=== PATIENT | male | born 1940 | race Caucasian/White ===

== ENCOUNTER 2022-02-01 16:32 | Emergency (ER) | payer MEDICARE, OTHER ==
[2022-02-01] MEDS ORDERED: Amoxicillin/Clavulanate K 875-125 MG Tab PO ONE (18:53)
== END 2022-02-01 19:16 | disposition home or self-care (01) ==
LOC: FB.ED 16:32
DX: J01.00 Acute maxillary sinusitis, unspecified (principal); H53.8 Other visual disturbances; Z79.82 Long term (current) use of aspirin; Z79.84 Long term (current) use of oral hypoglycemic drugs; Z79.899 Other long term (current) drug therapy; Z88.2 Allergy status to sulfonamides; Z88.5 Allergy status to narcotic agent; Z88.8 Allergy status to other drugs, medicaments and biological substances
CPT/HCPCS: 36415; 70486; 85651; 99284; A9270

== ENCOUNTER 2022-07-06 07:45 | Inpatient (IN) | payer MEDICARE, OTHER ==
[2022-07-06] MEDS ORDERED: Nitroglycerin 0.4 MG Tab.SL SL PRN (14:18)
[2022-07-06] MEDS ORDERED: Meclizine 25 MG Tab PO PRN (14:18)
[2022-07-06] MEDS ORDERED: Loperamide 2 MG Cap PO PRN (14:18)
[2022-07-06] MEDS ORDERED: Simethicone 80 MG Tab.Chew PO PRN (14:18)
[2022-07-06] MEDS ORDERED: Warfarin Sliding Scale PO SCH (14:45)
[2022-07-06] MEDS: Acetaminophen 500 MG Tab PO SCH ×2 (14:59→20:41)
[2022-07-06] MEDS: Spironolactone 25 MG Tab PO SCH (15:16)
[2022-07-06] MEDS: Bumetanide 1 MG Tab PO SCH (15:16)
[2022-07-06] MEDS: Midodrine 5 MG Tab PO SCH (17:01)
[2022-07-06] MEDS ORDERED: SODIUM CHLORIDE 0.65% NASBOTH PRN (18:15)
[2022-07-06] MEDS: Gabapentin 300 MG Cap PO SCH (20:41)
[2022-07-06] MEDS: atorvaSTATin 40 MG Tab PO SCH (20:41)
[2022-07-06] MEDS: Carboxymethylcellulose Sodium 1% Ophth Gel 15 ML Bottle EYEBOTH SCH (20:42)
[2022-07-07] MEDS: Acetaminophen 500 MG Tab PO SCH ×4 (03:01→20:29)
[2022-07-07] MEDS: Pantoprazole 40 MG Tab.CR PO SCH (05:28)
[2022-07-07] MEDS: Levothyroxine 125 MCG Tab PO SCH (05:28)
[2022-07-07 06:41] LABS: ESTIMATED GFR 35 mL/min (>60)
[2022-07-07] MEDS: Midodrine 5 MG Tab PO SCH ×2 (06:41→17:38)
[2022-07-07] MEDS: Lidocaine 4% 1 each Patch TOP SCH (08:13)
[2022-07-07] MEDS: Spironolactone 25 MG Tab PO SCH ×2 (08:13→13:41)
[2022-07-07] MEDS: Bumetanide 1 MG Tab PO SCH ×2 (08:13→13:41)
[2022-07-07] MEDS: Glimepiride 2 MG Tab PO SCH (08:14)
[2022-07-07] MEDS: Tamsulosin 0.4 MG Cap.ER PO SCH (08:15)
[2022-07-07] MEDS: Empagliflozin 25 MG Tab PO SCH (08:15)
[2022-07-07] MEDS: Aspirin 81 MG Tab.EC PO SCH (08:15)
[2022-07-07] MEDS: Finasteride 5 MG Tab PO SCH (08:15)
[2022-07-07] MEDS: Amiodarone 200 MG Tab PO SCH (08:17)
[2022-07-07] MEDS ORDERED: Warfarin 5 MG Tab PO SCH (16:00)
[2022-07-07] MEDS: Gabapentin 300 MG Cap PO SCH (20:29)
[2022-07-07] MEDS: atorvaSTATin 40 MG Tab PO SCH (20:29)
[2022-07-07] MEDS: Carboxymethylcellulose Sodium 1% Ophth Gel 15 ML Bottle EYEBOTH SCH (20:29)
[2022-07-08] MEDS: Acetaminophen 500 MG Tab PO SCH ×2 (02:02→08:43)
[2022-07-08] MEDS: Pantoprazole 40 MG Tab.CR PO SCH (06:12)
[2022-07-08] MEDS: Levothyroxine 125 MCG Tab PO SCH (06:12)
[2022-07-08] MEDS: Midodrine 5 MG Tab PO SCH ×2 (06:41→17:45)
[2022-07-08] MEDS: Spironolactone 25 MG Tab PO SCH ×2 (08:40→13:40)
[2022-07-08] MEDS: Bumetanide 1 MG Tab PO SCH ×2 (08:40→13:39)
[2022-07-08] MEDS: Glimepiride 2 MG Tab PO SCH (08:40)
[2022-07-08] MEDS: Lidocaine 4% 1 each Patch TOP SCH (08:40)
[2022-07-08] MEDS: Amiodarone 200 MG Tab PO SCH (08:41)
[2022-07-08] MEDS: Empagliflozin 25 MG Tab PO SCH (08:41)
[2022-07-08] MEDS: Tamsulosin 0.4 MG Cap.ER PO SCH (08:41)
[2022-07-08] MEDS: Aspirin 81 MG Tab.EC PO SCH (08:42)
[2022-07-08] MEDS: Finasteride 5 MG Tab PO SCH (08:42)
[2022-07-08] MEDS ORDERED: Acetaminophen 325 MG Tab PO PRN (09:17)
[2022-07-08] MEDS ORDERED: Diclofenac Sodium 1% Gel 100 GM Tube TOP PRN (09:24)
[2022-07-08] MEDS: atorvaSTATin 40 MG Tab PO SCH (21:32)
[2022-07-08] MEDS: Gabapentin 300 MG Cap PO SCH (21:32)
[2022-07-08] MEDS: Carboxymethylcellulose Sodium 1% Ophth Gel 15 ML Bottle EYEBOTH SCH (21:33)
[2022-07-09] MEDS: Levothyroxine 125 MCG Tab PO SCH (06:24)
[2022-07-09] MEDS: Pantoprazole 40 MG Tab.CR PO SCH (06:24)
[2022-07-09] MEDS: Midodrine 5 MG Tab PO SCH ×2 (06:40→17:00)
[2022-07-09] MEDS: Bumetanide 1 MG Tab PO SCH ×2 (07:54→13:24)
[2022-07-09] MEDS: Spironolactone 25 MG Tab PO SCH ×2 (07:55→13:24)
[2022-07-09] MEDS: Empagliflozin 25 MG Tab PO SCH (10:35)
[2022-07-09] MEDS: Amiodarone 200 MG Tab PO SCH (10:35)
[2022-07-09] MEDS: Aspirin 81 MG Tab.EC PO SCH (10:35)
[2022-07-09] MEDS: Finasteride 5 MG Tab PO SCH (10:35)
[2022-07-09] MEDS: Glimepiride 2 MG Tab PO SCH (10:35)
[2022-07-09] MEDS: Tamsulosin 0.4 MG Cap.ER PO SCH (10:35)
[2022-07-09] MEDS: Carboxymethylcellulose Sodium 1% Ophth Gel 15 ML Bottle EYEBOTH SCH (20:32)
[2022-07-09] MEDS: Polyethylene Glycol 3350 Powder 17 GM Packet PO SCH (20:33)
[2022-07-09] MEDS: atorvaSTATin 40 MG Tab PO SCH (20:33)
[2022-07-09] MEDS: Gabapentin 300 MG Cap PO SCH (20:41)
[2022-07-10 06:31] LABS: ESTIMATED GFR 28 mL/min (>60)
[2022-07-10] MEDS: Midodrine 5 MG Tab PO SCH ×3 (06:32→17:31)
[2022-07-10] MEDS: Levothyroxine 125 MCG Tab PO SCH (06:32)
[2022-07-10] MEDS: Pantoprazole 40 MG Tab.CR PO SCH (06:32)
[2022-07-10] MEDS: Glimepiride 2 MG Tab PO SCH (08:18)
[2022-07-10] MEDS: Spironolactone 25 MG Tab PO SCH ×2 (08:18→14:11)
[2022-07-10] MEDS: Aspirin 81 MG Tab.EC PO SCH (08:18)
[2022-07-10] MEDS: Bumetanide 1 MG Tab PO SCH ×2 (08:18→14:11)
[2022-07-10] MEDS: Finasteride 5 MG Tab PO SCH (08:18)
[2022-07-10] MEDS: Amiodarone 200 MG Tab PO SCH (08:18)
[2022-07-10] MEDS: Tamsulosin 0.4 MG Cap.ER PO SCH (08:18)
[2022-07-10] MEDS: Empagliflozin 25 MG Tab PO SCH (08:18)
[2022-07-10] MEDS: atorvaSTATin 40 MG Tab PO SCH (20:24)
[2022-07-10] MEDS: Gabapentin 300 MG Cap PO SCH (20:25)
[2022-07-10] MEDS: Polyethylene Glycol 3350 Powder 17 GM Packet PO SCH (20:25)
[2022-07-10] MEDS: Carboxymethylcellulose Sodium 1% Ophth Gel 15 ML Bottle EYEBOTH SCH (20:25)
[2022-07-11] MEDS: Pantoprazole 40 MG Tab.CR PO SCH (05:05)
[2022-07-11] MEDS: Levothyroxine 125 MCG Tab PO SCH (05:05)
[2022-07-11] MEDS: Midodrine 5 MG Tab PO SCH ×3 (06:29→17:18)
[2022-07-11] MEDS: Bumetanide 1 MG Tab PO SCH ×2 (08:06→13:36)
[2022-07-11] MEDS: Spironolactone 25 MG Tab PO SCH ×2 (08:06→13:36)
[2022-07-11] MEDS: Amiodarone 200 MG Tab PO SCH (08:07)
[2022-07-11] MEDS: Glimepiride 2 MG Tab PO SCH (08:07)
[2022-07-11] MEDS: Tamsulosin 0.4 MG Cap.ER PO SCH (08:07)
[2022-07-11] MEDS: Aspirin 81 MG Tab.EC PO SCH (08:08)
[2022-07-11] MEDS: Empagliflozin 25 MG Tab PO SCH (08:08)
[2022-07-11] MEDS: Finasteride 5 MG Tab PO SCH (08:08)
[2022-07-11] MEDS: Gabapentin 300 MG Cap PO SCH (20:33)
[2022-07-11] MEDS: Polyethylene Glycol 3350 Powder 17 GM Packet PO SCH (20:33)
[2022-07-11] MEDS: atorvaSTATin 40 MG Tab PO SCH (20:33)
[2022-07-11] MEDS: Carboxymethylcellulose Sodium 1% Ophth Gel 15 ML Bottle EYEBOTH SCH (20:34)
[2022-07-12] MEDS: Levothyroxine 125 MCG Tab PO SCH (06:01)
[2022-07-12] MEDS: Pantoprazole 40 MG Tab.CR PO SCH (06:01)
[2022-07-12] MEDS: Midodrine 5 MG Tab PO SCH ×3 (06:54→16:52)
[2022-07-12 07:05] LABS: ESTIMATED GFR 28 mL/min (>60)
[2022-07-12] MEDS: Bumetanide 1 MG Tab PO SCH ×2 (08:01→13:07)
[2022-07-12] MEDS: Finasteride 5 MG Tab PO SCH (08:02)
[2022-07-12] MEDS: Spironolactone 25 MG Tab PO SCH ×2 (08:03→13:07)
[2022-07-12] MEDS: Glimepiride 2 MG Tab PO SCH (08:03)
[2022-07-12] MEDS: Tamsulosin 0.4 MG Cap.ER PO SCH (08:04)
[2022-07-12] MEDS: Amiodarone 200 MG Tab PO SCH (08:04)
[2022-07-12] MEDS: Aspirin 81 MG Tab.EC PO SCH (08:06)
[2022-07-12] MEDS: Empagliflozin 25 MG Tab PO SCH (08:06)
[2022-07-12] MEDS ORDERED: Warfarin 2.5 MG Tab PO ONE (16:00)
[2022-07-12] MEDS: Gabapentin 300 MG Cap PO SCH (21:43)
[2022-07-12] MEDS: atorvaSTATin 40 MG Tab PO SCH (21:43)
[2022-07-12] MEDS: Polyethylene Glycol 3350 Powder 17 GM Packet PO SCH (21:43)
[2022-07-12] MEDS: Carboxymethylcellulose Sodium 1% Ophth Gel 15 ML Bottle EYEBOTH SCH (21:43)
[2022-07-13] MEDS: Pantoprazole 40 MG Tab.CR PO SCH (06:54)
[2022-07-13] MEDS: Levothyroxine 125 MCG Tab PO SCH (06:54)
[2022-07-13] MEDS: Midodrine 5 MG Tab PO SCH ×3 (06:55→18:06)
[2022-07-13] MEDS: Bumetanide 1 MG Tab PO SCH ×2 (08:09→13:58)
[2022-07-13] MEDS: Glimepiride 2 MG Tab PO SCH (08:09)
[2022-07-13] MEDS: Spironolactone 25 MG Tab PO SCH ×2 (08:09→13:58)
[2022-07-13] MEDS: Amiodarone 200 MG Tab PO SCH (08:10)
[2022-07-13] MEDS: Tamsulosin 0.4 MG Cap.ER PO SCH (08:10)
[2022-07-13] MEDS: Empagliflozin 25 MG Tab PO SCH (08:11)
[2022-07-13] MEDS: Aspirin 81 MG Tab.EC PO SCH (08:11)
[2022-07-13] MEDS: Finasteride 5 MG Tab PO SCH (08:11)
[2022-07-13] MEDS ORDERED: Warfarin 2.5 MG Tab PO ONE (16:00)
[2022-07-13] MEDS: Polyethylene Glycol 3350 Powder 17 GM Packet PO SCH (20:15)
[2022-07-13] MEDS: Carboxymethylcellulose Sodium 1% Ophth Gel 15 ML Bottle EYEBOTH SCH (20:15)
[2022-07-13] MEDS: atorvaSTATin 40 MG Tab PO SCH (20:15)
[2022-07-13] MEDS: Gabapentin 300 MG Cap PO SCH (20:20)
[2022-07-14] MEDS: Levothyroxine 125 MCG Tab PO SCH (06:41)
[2022-07-14] MEDS: Midodrine 5 MG Tab PO SCH ×3 (06:42→17:19)
[2022-07-14] MEDS: Pantoprazole 40 MG Tab.CR PO SCH (06:42)
[2022-07-14] MEDS: Bumetanide 1 MG Tab PO SCH ×2 (07:37→14:30)
[2022-07-14] MEDS: Spironolactone 25 MG Tab PO SCH ×2 (07:37→14:30)
[2022-07-14] MEDS: Glimepiride 2 MG Tab PO SCH (08:12)
[2022-07-14] MEDS: Empagliflozin 25 MG Tab PO SCH (08:13)
[2022-07-14] MEDS: Amiodarone 200 MG Tab PO SCH (08:13)
[2022-07-14] MEDS: Tamsulosin 0.4 MG Cap.ER PO SCH (08:13)
[2022-07-14] MEDS: Finasteride 5 MG Tab PO SCH (08:13)
[2022-07-14] MEDS: Aspirin 81 MG Tab.EC PO SCH (08:13)
[2022-07-14] MEDS: Gabapentin 300 MG Cap PO SCH (20:29)
[2022-07-14] MEDS: atorvaSTATin 40 MG Tab PO SCH (20:29)
[2022-07-14] MEDS: Polyethylene Glycol 3350 Powder 17 GM Packet PO SCH (20:29)
[2022-07-14] MEDS: Carboxymethylcellulose Sodium 1% Ophth Gel 15 ML Bottle EYEBOTH SCH (20:30)
[2022-07-15] MEDS: Levothyroxine 125 MCG Tab PO SCH (06:26)
[2022-07-15] MEDS: Pantoprazole 40 MG Tab.CR PO SCH (06:26)
[2022-07-15] MEDS: Midodrine 5 MG Tab PO SCH ×3 (06:46→17:36)
[2022-07-15 06:47] LABS: ESTIMATED GFR 27 mL/min (>60)
[2022-07-15] MEDS: Bumetanide 1 MG Tab PO SCH ×2 (09:46→09:48)
[2022-07-15] MEDS: Finasteride 5 MG Tab PO SCH (09:46)
[2022-07-15] MEDS: Tamsulosin 0.4 MG Cap.ER PO SCH (09:46)
[2022-07-15] MEDS: Empagliflozin 25 MG Tab PO SCH (09:46)
[2022-07-15] MEDS: Glimepiride 2 MG Tab PO SCH (09:46)
[2022-07-15] MEDS: Amiodarone 200 MG Tab PO SCH (09:46)
[2022-07-15] MEDS: Spironolactone 25 MG Tab PO SCH ×2 (09:48→14:31)
[2022-07-15] MEDS: Aspirin 81 MG Tab.EC PO SCH (09:48)
[2022-07-15] MEDS: Gabapentin 300 MG Cap PO SCH (20:37)
[2022-07-15] MEDS: atorvaSTATin 40 MG Tab PO SCH (20:38)
[2022-07-15] MEDS: Carboxymethylcellulose Sodium 1% Ophth Gel 15 ML Bottle EYEBOTH SCH (20:38)
[2022-07-15] MEDS: Polyethylene Glycol 3350 Powder 17 GM Packet PO SCH (20:38)
[2022-07-16] MEDS: Levothyroxine 125 MCG Tab PO SCH (06:41)
[2022-07-16] MEDS: Pantoprazole 40 MG Tab.CR PO SCH (06:41)
[2022-07-16] MEDS: Midodrine 5 MG Tab PO SCH ×3 (06:41→17:41)
[2022-07-16] MEDS: Spironolactone 25 MG Tab PO SCH ×2 (07:57→14:25)
[2022-07-16] MEDS: Glimepiride 2 MG Tab PO SCH (08:00)
[2022-07-16] MEDS: Bumetanide 1 MG Tab PO SCH (08:01)
[2022-07-16] MEDS: Finasteride 5 MG Tab PO SCH (08:01)
[2022-07-16] MEDS: Aspirin 81 MG Tab.EC PO SCH (08:01)
[2022-07-16] MEDS: Empagliflozin 25 MG Tab PO SCH (08:01)
[2022-07-16] MEDS: Amiodarone 200 MG Tab PO SCH (08:01)
[2022-07-16] MEDS: Tamsulosin 0.4 MG Cap.ER PO SCH (08:02)
[2022-07-16] MEDS: Gabapentin 300 MG Cap PO SCH ×2 (11:18→20:29)
[2022-07-16] MEDS ORDERED: Warfarin 2.5 MG Tab PO ONE (16:00)
[2022-07-16] MEDS: atorvaSTATin 40 MG Tab PO SCH (20:28)
[2022-07-16] MEDS: Polyethylene Glycol 3350 Powder 17 GM Packet PO SCH (20:28)
[2022-07-16] MEDS: Carboxymethylcellulose Sodium 1% Ophth Gel 15 ML Bottle EYEBOTH SCH (20:29)
[2022-07-17] MEDS: Levothyroxine 125 MCG Tab PO SCH ×2 (04:42→05:05)
[2022-07-17] MEDS: Pantoprazole 40 MG Tab.CR PO SCH ×2 (04:43→05:05)
[2022-07-17] MEDS: Midodrine 5 MG Tab PO SCH ×4 (05:31→16:32)
[2022-07-17] MEDS: Spironolactone 25 MG Tab PO SCH ×2 (08:21→13:01)
[2022-07-17] MEDS: Glimepiride 2 MG Tab PO SCH (08:22)
[2022-07-17] MEDS: Bumetanide 1 MG Tab PO SCH ×2 (08:24→15:33)
[2022-07-17] MEDS: Tamsulosin 0.4 MG Cap.ER PO SCH (08:24)
[2022-07-17] MEDS: Amiodarone 200 MG Tab PO SCH (08:24)
[2022-07-17] MEDS: Aspirin 81 MG Tab.EC PO SCH (08:25)
[2022-07-17] MEDS: Empagliflozin 25 MG Tab PO SCH (08:25)
[2022-07-17] MEDS: Gabapentin 300 MG Cap PO SCH ×2 (08:25→20:00)
[2022-07-17] MEDS: Finasteride 5 MG Tab PO SCH (08:26)
[2022-07-17] MEDS ORDERED: Warfarin 2.5 MG Tab PO ONE (16:00)
[2022-07-17] MEDS: Polyethylene Glycol 3350 Powder 17 GM Packet PO SCH (19:59)
[2022-07-17] MEDS: atorvaSTATin 40 MG Tab PO SCH (19:59)
[2022-07-17] MEDS: Carboxymethylcellulose Sodium 1% Ophth Gel 15 ML Bottle EYEBOTH SCH (20:00)
[2022-07-18] MEDS: Levothyroxine 125 MCG Tab PO SCH (05:06)
[2022-07-18] MEDS: Pantoprazole 40 MG Tab.CR PO SCH (05:06)
[2022-07-18] MEDS: Midodrine 5 MG Tab PO SCH ×3 (06:34→17:56)
[2022-07-18 06:43] LABS: ESTIMATED GFR 33 mL/min (>60)
[2022-07-18] MEDS: Glimepiride 2 MG Tab PO SCH (08:09)
[2022-07-18] MEDS: Bumetanide 1 MG Tab PO SCH (08:09)
[2022-07-18] MEDS: Tamsulosin 0.4 MG Cap.ER PO SCH (08:09)
[2022-07-18] MEDS: Finasteride 5 MG Tab PO SCH (08:11)
[2022-07-18] MEDS: Amiodarone 200 MG Tab PO SCH (08:11)
[2022-07-18] MEDS: Empagliflozin 25 MG Tab PO SCH (08:11)
[2022-07-18] MEDS: Spironolactone 25 MG Tab PO SCH ×2 (08:11→14:19)
[2022-07-18] MEDS: Aspirin 81 MG Tab.EC PO SCH (08:12)
[2022-07-18] MEDS: Gabapentin 300 MG Cap PO SCH ×2 (08:25→20:03)
[2022-07-18] MEDS ORDERED: Warfarin 2.5 MG Tab PO ONE (16:00)
[2022-07-18] MEDS: Carboxymethylcellulose Sodium 1% Ophth Gel 15 ML Bottle EYEBOTH SCH (20:03)
[2022-07-18] MEDS: Polyethylene Glycol 3350 Powder 17 GM Packet PO SCH (20:04)
[2022-07-18] MEDS: atorvaSTATin 40 MG Tab PO SCH (20:04)
[2022-07-19] MEDS: Levothyroxine 125 MCG Tab PO SCH (05:24)
[2022-07-19] MEDS: Pantoprazole 40 MG Tab.CR PO SCH (05:24)
[2022-07-19] MEDS: Midodrine 5 MG Tab PO SCH ×3 (06:37→17:45)
[2022-07-19] MEDS: Spironolactone 25 MG Tab PO SCH ×2 (08:56→14:57)
[2022-07-19] MEDS: Amiodarone 200 MG Tab PO SCH (08:57)
[2022-07-19] MEDS: Empagliflozin 25 MG Tab PO SCH (08:57)
[2022-07-19] MEDS: Tamsulosin 0.4 MG Cap.ER PO SCH (08:57)
[2022-07-19] MEDS: Finasteride 5 MG Tab PO SCH (08:57)
[2022-07-19] MEDS: Aspirin 81 MG Tab.EC PO SCH (08:58)
[2022-07-19] MEDS: Glimepiride 2 MG Tab PO SCH (08:58)
[2022-07-19] MEDS: Bumetanide 1 MG Tab PO SCH (08:59)
[2022-07-19] MEDS: Gabapentin 300 MG Cap PO SCH ×2 (09:05→21:10)
[2022-07-19] MEDS ORDERED: Warfarin 2.5 MG Tab PO ONE (16:00)
[2022-07-19] MEDS: Polyethylene Glycol 3350 Powder 17 GM Packet PO SCH (21:10)
[2022-07-19] MEDS: atorvaSTATin 40 MG Tab PO SCH (21:11)
[2022-07-19] MEDS: Carboxymethylcellulose Sodium 1% Ophth Gel 15 ML Bottle EYEBOTH SCH (21:11)
[2022-07-20] MEDS: Levothyroxine 125 MCG Tab PO SCH (05:41)
[2022-07-20] MEDS: Pantoprazole 40 MG Tab.CR PO SCH (05:41)
[2022-07-20] MEDS: Midodrine 5 MG Tab PO SCH ×3 (06:34→16:46)
[2022-07-20] MEDS: Spironolactone 25 MG Tab PO SCH ×2 (08:01→14:52)
[2022-07-20] MEDS: Glimepiride 2 MG Tab PO SCH (08:01)
[2022-07-20] MEDS: Finasteride 5 MG Tab PO SCH (08:02)
[2022-07-20] MEDS: Empagliflozin 25 MG Tab PO SCH (08:02)
[2022-07-20] MEDS: Aspirin 81 MG Tab.EC PO SCH (08:02)
[2022-07-20] MEDS: Bumetanide 1 MG Tab PO SCH (08:02)
[2022-07-20] MEDS: Amiodarone 200 MG Tab PO SCH (08:02)
[2022-07-20] MEDS: Tamsulosin 0.4 MG Cap.ER PO SCH (08:03)
[2022-07-20] MEDS: Gabapentin 300 MG Cap PO SCH ×2 (08:09→20:15)
[2022-07-20] MEDS ORDERED: Warfarin 2.5 MG Tab PO ONE (16:00)
[2022-07-20] MEDS: atorvaSTATin 40 MG Tab PO SCH (20:16)
[2022-07-20] MEDS: Polyethylene Glycol 3350 Powder 17 GM Packet PO SCH (20:17)
[2022-07-20] MEDS: Carboxymethylcellulose Sodium 1% Ophth Gel 15 ML Bottle EYEBOTH SCH (20:17)
[2022-07-21] MEDS: Levothyroxine 125 MCG Tab PO SCH (05:05)
[2022-07-21] MEDS: Pantoprazole 40 MG Tab.CR PO SCH (05:05)
[2022-07-21] MEDS: Midodrine 5 MG Tab PO SCH ×2 (07:02→11:42)
[2022-07-21] MEDS: Spironolactone 25 MG Tab PO SCH ×2 (07:55→14:01)
[2022-07-21] MEDS: Gabapentin 300 MG Cap PO SCH ×2 (08:01→20:47)
[2022-07-21] MEDS: Aspirin 81 MG Tab.EC PO SCH (08:02)
[2022-07-21] MEDS: Bumetanide 1 MG Tab PO SCH (08:02)
[2022-07-21] MEDS: Finasteride 5 MG Tab PO SCH (08:02)
[2022-07-21] MEDS: Empagliflozin 25 MG Tab PO SCH (08:03)
[2022-07-21] MEDS: Glimepiride 2 MG Tab PO SCH (08:03)
[2022-07-21] MEDS: Amiodarone 200 MG Tab PO SCH (08:03)
[2022-07-21] MEDS ORDERED: Warfarin 2.5 MG Tab PO ONE (16:00)
[2022-07-21] MEDS: atorvaSTATin 40 MG Tab PO SCH (20:47)
[2022-07-21] MEDS: Polyethylene Glycol 3350 Powder 17 GM Packet PO SCH (20:48)
[2022-07-21] MEDS: Carboxymethylcellulose Sodium 1% Ophth Gel 15 ML Bottle EYEBOTH SCH (20:48)
[2022-07-22] MEDS: Pantoprazole 40 MG Tab.CR PO SCH (05:53)
[2022-07-22] MEDS: Levothyroxine 125 MCG Tab PO SCH (05:53)
[2022-07-22] MEDS: Spironolactone 25 MG Tab PO SCH (08:06)
[2022-07-22] MEDS: Glimepiride 2 MG Tab PO SCH (08:07)
[2022-07-22] MEDS: Finasteride 5 MG Tab PO SCH (08:07)
[2022-07-22] MEDS: Aspirin 81 MG Tab.EC PO SCH (08:08)
[2022-07-22] MEDS: Amiodarone 200 MG Tab PO SCH (08:08)
[2022-07-22] MEDS: Empagliflozin 25 MG Tab PO SCH (08:09)
[2022-07-22] MEDS: Bumetanide 1 MG Tab PO SCH (08:09)
[2022-07-22] MEDS: Gabapentin 300 MG Cap PO SCH (08:15)
[2022-07-22] MEDS ORDERED: Warfarin 2.5 MG Tab PO ONE (16:00)
== END 2022-07-22 11:25 | disposition home health service (06) | DRG 948 ==
LOC: FB.MS 13:00
PROVIDERS: ADMIT Family Medicine; ATTEND Family Medicine
DX: R53.1 Weakness (principal); E87.1 Hypo-osmolality and hyponatremia; I13.0 Hypertensive heart and chronic kidney disease with heart failure and stage 1 through stage 4 chronic kidney disease, or unspecified chronic kidney disease; I50.42 Chronic combined systolic (congestive) and diastolic (congestive) heart failure; N18.31 Chronic kidney disease, stage 3a; I95.1 Orthostatic hypotension; E78.2 Mixed hyperlipidemia; E11.22 Type 2 diabetes mellitus with diabetic chronic kidney disease; H53.8 Other visual disturbances; K21.9 Gastro-esophageal reflux disease without esophagitis; M19.90 Unspecified osteoarthritis, unspecified site; F41.9 Anxiety disorder, unspecified; F32.A Depression, unspecified; H35.30 Unspecified macular degeneration; E78.00 Pure hypercholesterolemia, unspecified; Z95.5 Presence of coronary angioplasty implant and graft; Z86.73 Personal history of transient ischemic attack (TIA), and cerebral infarction without residual deficits; Z79.82 Long term (current) use of aspirin; Z79.899 Other long term (current) drug therapy; Z79.01 Long term (current) use of anticoagulants; Z88.6 Allergy status to analgesic agent; Z88.8 Allergy status to other drugs, medicaments and biological substances; Z88.5 Allergy status to narcotic agent; I25.2 Old myocardial infarction; Z95.0 Presence of cardiac pacemaker; Z98.890 Other specified postprocedural states
CPT/HCPCS: 36415; 80048; 80053; 82947; 83036; 85610; 97110-GO; 97110-GP; 97116-GP; 97161-GP; 97165-GO; 97530-GO; 97530-GP; 97535-GO; 99305; 99308; 99309; 99315; A9270-GY

== ENCOUNTER 2022-11-27 06:57 | Day surgery (SDC) | payer MEDICARE, OTHER ==
[~2022-11-27 06:57] MED LIST: Lactated Ringers 1,000 ML IV PRN; Sodium Chloride 0.9% 10 ML Syringe FLUSH PRN
[2022-11-27] MEDS ORDERED: Midazolam 1 MG/ML 2 ML SDV IV ONE (06:58)
[2022-11-27] MEDS ORDERED: fentaNYL 100 MCG/2 ML SDV IV ONE (06:58)
[2022-11-27] MEDS ORDERED: acetaZOLAMIDE 500 MG Cap.ER PO ONE (09:00)
== END 2022-11-27 09:47 | disposition home or self-care (01) ==
LOC: FB.SDS 06:57
PROVIDERS: ATTEND Ophthalmology
DX: H25.811 Combined forms of age-related cataract, right eye (principal); H21.81 Floppy iris syndrome; H35.3130 Nonexudative age-related macular degeneration, bilateral, stage unspecified; I11.0 Hypertensive heart disease with heart failure; I50.22 Chronic systolic (congestive) heart failure; E78.5 Hyperlipidemia, unspecified; I25.10 Atherosclerotic heart disease of native coronary artery without angina pectoris; E11.9 Type 2 diabetes mellitus without complications; I47.20 Ventricular tachycardia, unspecified; R53.83 Other fatigue; H52.00 Hypermetropia, unspecified eye; N40.1 Benign prostatic hyperplasia with lower urinary tract symptoms; N39.0 Urinary tract infection, site not specified; R97.20 Elevated prostate specific antigen [PSA]; E66.9 Obesity, unspecified; I21.4 Non-ST elevation (NSTEMI) myocardial infarction; Z79.01 Long term (current) use of anticoagulants; Z79.84 Long term (current) use of oral hypoglycemic drugs; Z79.899 Other long term (current) drug therapy
CPT/HCPCS: 00142; 82947; A9270-GY; J2250; J3010; J7120

== ENCOUNTER 2022-12-18 07:30 | Day surgery (SDC) | payer MEDICARE, OTHER ==
[~2022-12-18 07:30] MED LIST changes: -Lactated Ringers 1,000 ML IV PRN
[2022-12-18] MEDS ORDERED: fentaNYL 100 MCG/2 ML SDV IV ONE (07:31)
[2022-12-18] MEDS ORDERED: Midazolam 1 MG/ML 2 ML SDV IV ONE (07:31)
[2022-12-18] MEDS: Lactated Ringers 1,000 ML IV SCH (08:25)
[2022-12-18] MEDS: acetaZOLAMIDE 500 MG Cap.ER PO ONE (09:38)
== END 2022-12-18 10:10 | disposition home or self-care (01) ==
LOC: FB.SDS 07:30
PROVIDERS: ATTEND Ophthalmology
DX: H21.81 Floppy iris syndrome (principal); I10 Essential (primary) hypertension; E78.5 Hyperlipidemia, unspecified; E11.9 Type 2 diabetes mellitus without complications; I21.4 Non-ST elevation (NSTEMI) myocardial infarction; Z79.899 Other long term (current) drug therapy; Z79.890 Hormone replacement therapy; Z88.8 Allergy status to other drugs, medicaments and biological substances; Z88.5 Allergy status to narcotic agent; Z98.890 Other specified postprocedural states
CPT/HCPCS: 00142; 82947; A9270-GY; J2250; J3010; J7120; V2632

== ENCOUNTER 2025-01-17 12:29 | Emergency (ER) | payer MEDICARE, OTHER | END 2025-01-17 13:53 | disposition home or self-care (01) | LOC: FB.ED 12:29 | DX: S01.01XA Laceration without foreign body of scalp, initial encounter (principal); I11.0 Hypertensive heart disease with heart failure; I50.9 Heart failure, unspecified; E78.00 Pure hypercholesterolemia, unspecified; Z88.8 Allergy status to other drugs, medicaments and biological substances; Z88.5 Allergy status to narcotic agent; Z79.899 Other long term (current) drug therapy; Z79.82 Long term (current) use of aspirin; E11.9 Type 2 diabetes mellitus without complications; Z95.1 Presence of aortocoronary bypass graft; W26.8XXA Contact with other sharp object(s), not elsewhere classified, initial encounter; Y93.89 Activity, other specified | CPT/HCPCS: 12001; 12005; 70450; 99283 ==